=== PATIENT | male | born 1980 | race Caucasian/White ===

== ENCOUNTER 2024-03-25 22:16 | Emergency (ER) | payer SELFPAY ==
[~2024-03-25] VITALS: Ht 167.6 cm; Wt 71.0 kg
[2024-03-25 23:06] VITALS: O2SAT 99
[2024-03-25 23:26] LABS: EOSINOPHILS % 1.2 % (0.0-5.0); HEMATOCRIT. 47.1 % (42.0-52.0); HEMOGLOBIN. 16.6 g/dL (14.0-18.0); LYMPHOCYTES % 25.4 % (20.0-50.0); MEAN CORPUSCULAR HGB CONC 35.2 g/dL (31.0-37.0); MEAN CORPUSCULAR VOLUME 87.9 fL (80.0-94.0); MEAN PLATELET VOLUME 8.3 fl (7.4-10.4); MONOCYTES % 10.5 % (2.0-8.0); NEUTROPHILS % 61.9 % (40.0-76.0); PLATELET 241 x1000/uL (130-400); RED BLOOD CELL COUNT 5.37 mill/uL (4.7-6.1); RED CELL DISTRIBUTION WIDTH 13.1 % (11.6-14.6); WHITE BLOOD COUNT 5.1 x1000/uL (4.5-11.0)
[2024-03-25 23:39] LABS: CARBON DIOXIDE 30 mEq/L (21-32); CHLORIDE 97 mEq/L (98-107); POTASSIUM 4.8 mEq/L (3.5-5.1); SODIUM 131 mEq/L (136-145)
[2024-03-25 23:40] LABS: CALCIUM 10.6 mg/dL (8.7-10.4)
[2024-03-25 23:44] LABS: GLUCOSE 397 mg/dL (70-105)
[2024-03-25 23:45] LABS: UREA NITROGEN BLOOD 8 mg/dL (9-23)
[2024-03-25 23:57] LABS: TROPONIN I HIGH SENSITIVITY < 4 ng/L (3.0-53)
[2024-03-26] MEDS ORDERED: METF-416 MT (00:58)
[2024-03-26] MEDS: SODIUM CHLORIDE 0.9% 1,000 ML IV ONE (01:39)
[2024-03-26] MEDS: ONDANSETRON HCL 4MG/2ML INJ IV ONE (01:47)
[2024-03-26 02:45] VITALS: BP 132/80; PULSE 64; RESP 16; TEMP 36.83628; O2SAT 100
== END 2024-03-26 02:52 | disposition home or self-care (01) ==
LOC: ER 22:16
DX: E11.65 Type 2 diabetes mellitus with hyperglycemia (principal); Z88.0 Allergy status to penicillin
CPT/HCPCS: 80048; 85025; 84484; 36415; 71045; 93005; 99285; 82962; 96361; 96374; J2405; J7030; Z7610